=== PATIENT | male | born 1990 | race Hispanic/Latino ===

== ENCOUNTER 2018-07-17 01:49 | Emergency (ER) | payer SELFPAY ==
[~2018-07-17 01:49] MED LIST: ACET1TAB12 PO
[2018-07-17 02:11] LABS: BASOPHILS % (AUTO) 0.7 % (0.0-5.0); EOSINOPHILS % (AUTO) 3.2 % (0.0-8.0); HEMATOCRIT 48.9 % (42-54); LYMPHOCYTES % (AUTO) 34.6 % (21.0-51.0); MEAN CORPUSCULAR HEMOGLOBIN 29.6 pg (27.0-33.0); MEAN CORPUSCULAR HGB CONC 32.9 g/dL (32.0-36.0); MEAN CORPUSCULAR VOLUME 90.1 fL (79-99); MONOCYTES % (AUTO) 4.3 % (3.0-13.0); NEUTROPHILS % (AUTO) 57.2 % (40.0-77.0); NUCLEATED RED BLOOD CELLS 0.2 % (0.0-0.19); PLATELET COUNT (AUTO) 303 K/uL (130-400); RED BLOOD CELL COUNT(AUTO) 5.42 MIL/uL (4.50-6.20); RED CELL DISTRIBUTION WIDTH 13.1 % (11.0-15.5); WHITE BLOOD COUNT (AUTO) 11.9 K/uL (4.8-10.8)
[2018-07-17 02:22] LABS: CREATININE 0.9 mg/dL (0.5-1.5); POTASSIUM 3.5 mmol/L (3.5-5.1)
[2018-07-17 02:26] LABS: ALBUMIN 4.1 g/dL (3.5-5.0); BILIRUBIN,TOTAL 0.3 mg/dL (0.2-1.0); TOTAL PROTEIN, SERUM 7.8 g/dL (6.0-8.3)
[2018-07-17] MEDS ORDERED: THIAMINE HCL 100 MG/ML 2ML VIAL ONE (02:39)
[2018-07-17 02:52] LABS: AMPHET/METH SCREEN,URINE NEGATIVE (NEGATIVE); BARBITURATE SCREEN, URINE NEGATIVE (NEGATIVE); BENZODIAZEPINES SCREEN,URINE NEGATIVE (NEGATIVE); CANNABINOID SCREEN,URINE NEGATIVE (NEGATIVE); COCAINE SCREEN,URINE NEGATIVE (NEGATIVE); OPIATE SCREEN,URINE NEGATIVE (NEGATIVE); PHENCYCLIDINE SCREEN,URINE NEGATIVE (NEGATIVE)
== END 2018-07-17 05:47 | disposition home or self-care (01) ==
LOC: EDH 01:49
DX: S00.83XA Contusion of other part of head, initial encounter (principal); F10.129 Alcohol abuse with intoxication, unspecified; Z90.49 Acquired absence of other specified parts of digestive tract; Y90.6 Blood alcohol level of 120-199 mg/100 ml; Y04.0XXA Assault by unarmed brawl or fight, initial encounter; Y93.89 Activity, other specified; Y92.89 Other specified places as the place of occurrence of the external cause; Y99.8 Other external cause status
CPT/HCPCS: 36415; 70450; 80053; 80305; 85025; 96365; 96366 ×2; 99284; G0480; J3411

== ENCOUNTER 2021-03-15 13:06 | Emergency (ER) | payer OTHER ==
[~2021-03-15] VITALS: Ht 177.8 cm; Wt 108.9 kg
[2021-03-15 13:13] VITALS: BP 117/74
[2021-03-15 14:34] LABS: BASOPHILS % (AUTO) 0.2 % (0.0-5.0); HEMATOCRIT 46.5 % (42-54); MEAN CORPUSCULAR HEMOGLOBIN 29.5 pg (27.0-33.0); MEAN CORPUSCULAR HGB CONC 34.4 g/dL (32.0-36.0); MEAN CORPUSCULAR VOLUME 85.6 fL (79-99); MONOCYTES % (AUTO) 3.5 % (3.0-13.0); NEUTROPHILS % (AUTO) 72.7 % (40.0-77.0); PLATELET COUNT (AUTO) 180 K/uL (130-400); RED BLOOD CELL COUNT(AUTO) 5.43 MIL/uL (4.50-6.20); RED CELL DISTRIBUTION WIDTH 12.5 % (11.0-15.5)
[2021-03-15 14:49] LABS: POTASSIUM 3.6 mmol/L (3.5-5.1)
[2021-03-15 15:06] LABS: ALBUMIN 3.3 g/dL (3.5-5.0); BILIRUBIN,DIRECT 0.1 mg/dL (0.0-0.3); BILIRUBIN,TOTAL 0.4 mg/dL (0.2-1.0); TOTAL PROTEIN, SERUM 8.1 g/dL (6.0-8.3)
[2021-03-15 15:17] LABS: CRP QUANTITATIVE 233.5 mg/L (0.00-9.0)
[2021-03-15] MEDS ORDERED: IBUPROFEN 600 MG TABLET PO ONE (16:27)
[2021-03-15] MEDS ORDERED: ACETAMINOPHEN 500 MG TABLET PO ONE (16:27)
[2021-03-15 17:29] VITALS: BP 139/85
[2021-03-15] MEDS ORDERED: CEFTRIAXONE 1G VIAL 1 GM in 0.9%NACL 100ML 100 ML IV ONE (17:30)
[2021-03-15] MEDS ORDERED: ALBUTEROL INHALER 90MCG/INH IH SCH (18:00)
[2021-03-15 18:02] VITALS: BP 134/84
[2021-03-15] MEDS ORDERED: CEFTRIAXONE 1G VIAL ONE (18:09)
[2021-03-15] MEDS ORDERED: ALBUTEROL INHALER 90MCG/INH IH ONE (18:09)
[2021-03-15] MEDS ORDERED: DEXAMETHASONE SOD PHOSPHATE 4 MG/ML 1ML VIAL ONE (18:09)
[2021-03-15] MEDS ORDERED: LIDOCAINE HCL-MPF 1% 2ML VIAL ONE (18:09)
[2021-03-15] MEDS ORDERED: DEXAMETHASONE SOD PHOSPHATE 4 MG/ML 1ML VIAL IVP ONE (18:11)
[2021-03-15] MEDS ORDERED: CEFTRIAXONE 1G VIAL IVP SCH (18:30)
[2021-03-15] MEDS ORDERED: D-ME118S47 PO (18:50)
[2021-03-15] MEDS ORDERED: AZIT500T4 PO (18:50)
[2021-03-15] MEDS ORDERED: 0.9%NACL 1000ML 1,000 ML IV ONE (19:00)
== END 2021-03-15 18:57 | disposition home or self-care (01) ==
LOC: EDH 13:06
DX: U07.1 COVID-19 (principal); J12.89 Other viral pneumonia; Z79.899 Other long term (current) drug therapy
CPT/HCPCS: 36415; 71045; 80053; 80076; 82550; 82728; 83605; 83615; 84484; 85025; 86140; 87635; 87804 ×2; 93005; 96374; 96375; 99285; C9803; J0696; J1100; J3490